=== PATIENT | female | born 1950 | race Caucasian/White ===

== ENCOUNTER 2019-06-14 08:44 | Outpatient (RCR) | payer MEDICARE, SELFPAY | END 2019-06-18 23:59 | disposition home or self-care (01) | LOC: SPT 08:44 | PROVIDERS: Family Provider Family Medicine; PCP Family Medicine; Visit Provider Family Medicine | DX: R26.81 Unsteadiness on feet (principal) | CPT/HCPCS: 97162 ==

== ENCOUNTER 2019-06-19 06:00 | Outpatient (RCR) | payer MEDICARE, SELFPAY | END 2019-07-17 23:59 | disposition home or self-care (01) | LOC: SPT 06:00 | PROVIDERS: Family Provider Family Medicine; PCP Family Medicine; Visit Provider Family Medicine | DX: R26.81 Unsteadiness on feet (principal) | CPT/HCPCS: 97110; 97112; 97116 ==

== ENCOUNTER 2019-07-18 06:00 | Outpatient (RCR) | payer MEDICARE, SELFPAY | END 2019-08-17 23:59 | disposition home or self-care (01) | LOC: SPT 06:00 | PROVIDERS: Family Provider Family Medicine; PCP Family Medicine; Visit Provider Family Medicine | DX: R26.81 Unsteadiness on feet (principal) | CPT/HCPCS: 97110 ==